=== PATIENT | female | born 1960 | race Two or more races ===

== ENCOUNTER → 2024-10-28 | Outpatient (CLI) | payer MEDICARE, OTHER, SELFPAY ==
--- NOTE | 2024-10-28 | XR_ITS ---
Examination: Bone densitometry Date and time of exam:October 28, 2024 1251 hrs. Indications: Hysterectomy age [age] Technique: Lumbar spine and hip total bone mineralization values of an calculated. Peak reference and age match control results have been displayed. Findings: Lumbar spine total bone mineralization is1.223 gm/cm2. This is 1.6 standard deviations above peak reference. This is 3. 4standard deviations above age-matched controls. Hip total bone mineralization is 0.889 gm/cm2 This is 0.5 standard deviations below peak reference. This is 0.6 standard deviations above age-matched controls Impression: There is normal mineralization based on lumbar spine measurements. There is osteopenia based on hip measurements
== END | disposition home or self-care (01) ==
PROVIDERS: PCP Nurse Practitioner; Referring Provider Nurse Practitioner; Visit Provider Nurse Practitioner
DX: M85.88 Other specified disorders of bone density and structure, other site (principal)
CPT/HCPCS: 77080

== ENCOUNTER → 2025-07-29 | Outpatient (CLI) | payer MEDICARE, OTHER, SELFPAY ==
--- NOTE | 2025-07-29 12:30 | XR_ITS ---
Examination: Abdomen sonogram, Limited Date and time of exam: July 29, 2025, 1334 hours INDICATIONS: Umbilical lump noticed beginning 2 years ago Technique: Real-time johnson scale transabdominal sonographic images of the upper abdomen obtained. Findings: No cystic or solid mass depicted IMPRESSION: No cystic or solid mass depicted
== END | disposition home or self-care (01) ==
PROVIDERS: PCP Nurse Practitioner; Referring Provider Nurse Practitioner; Visit Provider Nurse Practitioner
DX: R22.9 Localized swelling, mass and lump, unspecified (principal)
CPT/HCPCS: 76705